=== PATIENT | male | born 1945 | race Caucasian/White ===

== ENCOUNTER → 2021-12-31 | Outpatient (CLI) | payer OTHER ==
[~2021-12-31] MED LIST: HYDACE5 PO; ROSU10TA PO; TELM80 PO; VENL25 PO
[2022-01-01 12:08] LABS: C DIFFICILE DNA NEGATIVE (Negative)
== END | disposition home or self-care (01) ==
LOC: LAB SHORT 15:13 → LAB 15:13
PROVIDERS: Family Medicine
DX: R15.9 Full incontinence of feces (principal)
CPT/HCPCS: 87015; 87045; 87046; 87205; 87493; 87899